=== PATIENT | female | born 1950 | race African-American/Black ===

== ENCOUNTER 2016-09-22 15:05 | Inpatient (IN) | payer MEDICARE, OTHER ==
[~2016-09-22] VITALS: Ht 172.7 cm; Wt 83.1 kg
--- NOTE | ~2016-09-22 | CO ---
Unit #: [id number] #: [id number] Patient: ATA THORNTON [id number] [facility]. [place], [place] [address] [id number] MR#: [id number] NAME: ATA THORNTON ROOM: 567 Age: 66 Sex: F Admission Date: 09/22/2016 : 1950 Attending Physician: Dwayne Hale M.D. Primary Care Physician: Johana Ramos M.D. Requesting Physician: Dwayne Hale M.D. Consultation Date: 09/23/2016 CONSULTATION REPORT REASON FOR CONSULTATION End stage renal disease. Thank you very much for the consultation. HPI Patient is a 66-year-old, -Honduran female who has a history of end stage renal disease. She receives dialysis every Monday, , and Monday at the [facility] on [facility]. She had all but 20 minutes of her dialysis treatment yesterday when she developed shortness of breath and was sent to the emergency room. Her symptoms improved with steroids and breathing treatments. While in the emergency room, she was noted to still have her dialysis needles in place. Upon removal of the dialysis needles, her fistula continued to bleed. The bleeding persisted despite pressure, dressing, and Surgicel. She was given DDAVP and vascular surgery was consulted to evaluate the patient. She is complaining of some numbness and weakness in her left hand. She did recently have exposed graft in that arm, which was removed. She has also had infection in that arm, which was treated with prolonged course of antibiotics recently. She otherwise denies any chest pain or shortness of breath this morning. No nausea, vomiting, or diarrhea. Her blood pressure had been elevated in the emergency room, but is doing better. No other complaints. PAST MEDICAL HISTORY Her past medical history is significant for end stage renal disease on Monday, , Monday hemodialysis; hypertension; history of GI bleed; hepatitis C; diabetes; and anemia of chronic kidney disease. MEDICATIONS Meds are as per the med rec. FAMILY HISTORY Noncontributory. SOCIAL HISTORY No tobacco or alcohol. She does live in a custodial. REVIEW OF SYSTEMS A 12-system review of systems is negative, except as per HPI. PHYSICAL EXAMINATION VITAL SIGNS: Her blood pressure is 156/61, heart rate 87, respirations 18, and current temperature 97.7. Unit #: [id number] #: [id number] Patient: ATA THORNTON GENERAL: Generally, she is a pleasant, -Honduran female in no acute distress. HEENT: Head is normocephalic and atraumatic. ENT: Pupils equally round and reactive to light. Oropharynx is clear. NECK: Supple. No JVD. LUNGS: Clear to auscultation bilaterally with no wheezes, rhonchi, or crackles. HEART: Regular rate and rhythm. No murmurs, gallops, or rubs. ABDOMEN: Soft, nontender, and nondistended with positive bowel sounds. EXTREMITIES: She has a pressure bandage over the left upper extremity AV fistula. There is a good bruit. NEURO: Cranial nerves, II-XII, are intact to testing. Gait was not assessed. DIAGNOSTIC STUDIES LABS: Sodium 143, potassium 4.2, chloride 96, bicarb 27, BUN 30, creatinine 4.5, glucose 243, calcium 8.2. White count 3.7, hemoglobin 8.5, and platelets 173. IMPRESSION 1. End stage renal disease on Monday, , Monday hemodialysis. 2. Shortness of breath likely secondary to chronic obstructive pulmonary disease. This is improved. 3. Prolonged bleeding from AV fistula. 4. Anemia of chronic kidney disease. 5. Hypertension. PLAN We will continue with Monday, , Monday hemodialysis while in the hospital. Awaiting vascular evaluation of her left arm access. Will check iron stores and continue Epo. with dialysis. Will titrate patient's clonidine and add p.r.n. hydralazine. Will have further recommendations as her hospital course progresses. Depending on vascular opinion, would be okay to discharge any time from a renal standpoint. Thank you very much for this consultation. Dictated by... Rohit Palma M.D. TEJ/carmen TD: 09/24/2016 08:22 JOB #: [id number] CONSULTATION REPORT Page 1 of 1 X Rohit Palma MD X CONSULTATION REPORT
--- NOTE | ~2016-09-22 | CO ---
Unit #: [id number] #: [id number] Patient: ATA THORNTON [id number] [address] [place], [place] [address] [id number] MR#: [id number] NAME: ATA THORNTON ROOM: 567 Age: 66 Sex: F Admission Date: 09/22/2016 : 1950 Attending Physician: Dwayne Hale M.D. Primary Care Physician: Johana Ramos M.D. CONSULTATION REPORT HISTORY OF PRESENT ILLNESS This is a 66-year-old -Maldivian female who is known to Dr. Luz and has a history of coronary artery disease where she underwent angioplasty and stent placement to the LAD in the past. She was admitted to this facility in January 2016 where she underwent cardiac catheterization where the previously placed stent to the LAD was patent. She had nonobstructive disease to the distal LAD, circumflex and right coronary artery. She was originally admitted to this facility from hemodialysis because of shortness of breath. She had bleeding from her AV fistula site requiring sutures. She has been seen by Vascular and no intervention is required at this time. Today, the patient developed right anterior chest pain with numbness to her left hand after moving in bed. The pain onset was sudden. It is worse with deep inspiration and palpation to her chest wall. She reports shortness of breath. EKG was obtained which was normal. Troponin also done, which was normal. The patient resides in a correction and is mostly bed bound and occasionally sits in a wheelchair. She is known to have risk factors for ischemic heart disease includes hypertension, hyperlipidemia and diabetes. Her shortness of breath was secondary to COPD exacerbation, which she has been treated accordingly. PAST MEDICAL HISTORY 1. A 2-D echocardiogram, 01/20/2016, shows an ejection fraction of 50 to 55% or grade 2 diastolic dysfunction. There was mild tricuspid regurgitation. 2. Angioplasty and stent placement to the LAD. No details available. 3. Cardiac catheterization, 01/22/2016, per Dr. Deng, shows left main normal. Left anterior descending artery has a long stent mid to distal with 20% instent stenosis. (1) LAD had 60 to 70% stenosis. Mid circumflex artery 50%. Right coronary artery proximal 50 to 60%. Ejection fraction of 60%. 4. Hypertension. 5. Hyperlipidemia. 6. Diabetes mellitus type 2. 7. CVA/TIA. 8. Hepatitis C. 9. End-stage renal disease on hemodialysis. 10. GI bleed, 01/2016, status post EGD which was normal. 11. custodial resident. 12. Nonsmoker. 13. Immobility syndrome. PAST SURGICAL HISTORY 1. AV shunt placement. Unit #: [id number] #: [id number] Patient: ATA THORNTON 2. Hysterectomy. 3. Left total knee replacement. 4. Cholecystectomy. 5. Cataract extraction. 6. Foot surgery. SOCIAL HISTORY The patient resides at a correction. She is a lifelong nonsmoker. She has no report of illicit drug or alcohol use. FAMILY HISTORY Noncontributory. ALLERGIES Sulfa, codeine, oxycodone, furosemide, Ibuprofen and latex. HOME MEDICATIONS 1. Loratadine 10 mg daily. 2. BuSpar 7.5 mg t.i.d. 3. Cardura 2 mg q.h.s. 4. Clonidine 0.2 mg t.i.d. 5. Docusate sodium 100 mg b.i.d. 6. Trazodone 50 mg q.h.s. 7. Neurontin 100 mg t.i.d. 8. Humulin R per sliding scale. 9. Lexapro 10 mg daily. 10. Lortab 5/325 mg one tablet q.6 hours p.r.n. 11. Plavix 75 mg daily. 12. Protonix 40 mg daily. 13. Multivitamin one tablet daily. 14. Symbicort 160/4.5 mcg two puffs b.i.d. 15. Metoprolol succinate 50 mg daily. 16. Calcium carbonate 1,000 mg daily. REVIEW OF SYSTEMS A 10-point review of systems negative except details stated in HPI. PHYSICAL EXAMINATION GENERAL APPEARANCE: This is an obese, 66-year-old -Maldivian female who is in no acute distress. VITAL SIGNS: Blood pressure 138/84. Heart rate 69. Temperature 98.7. NEUROLOGIC: She is awake, alert, oriented. There are no focal weaknesses. NECK: Trachea is midline. No thyromegaly or lymphadenopathy. No jugular venous distention. HEART: S1, S2 heart sounds are normal. No murmurs, rubs or clicks. Regular rate and rhythm. LUNGS: Clear both lung bases. ABDOMEN: Soft, nontender but bowel sounds are present. No organomegaly. EXTREMITIES: Without leg edema. SKIN: Warm and dry. DIAGNOSTIC STUDIES LABORATORY: Hemoglobin 8.5, hematocrit 25.4, platelet count 173, white count 3.7. Sodium 133, potassium 4.2, BUN 30, creatinine 4.5, glucose 243. Troponin 0.04. CARDIOVASCULAR: EKG shows normal sinus rhythm, rate of 61 beats per minute. QTC prolongation 495 msec. Unit #: [id number] #: [id number] Patient: ATA THORNTON IMPRESSION 1. AV fistula bleeds resolved. 2. Right-sided chest pain musculoskeletal in origin. 3. History of PCI and stent to the LAD. Patent per cardiac catheterization 01/2016. 4. Preserved left ventricular systolic function with ejection fraction of 50 to 55%. 5. Hypertension. 6. Hyperlipidemia. 7. Diabetes mellitus type 2. 8. COPD. 9. Anxiety. 10. End-stage renal disease on hemodialysis. PLAN 1. Cardiology was asked to see the patient because of chest pain. The patient has right-sided chest pain that is reproducible with palpation. She has chest pain also with deep inspiration. Troponin initially negative with no acute changes on EKG. The chest pain appears to be noncardiac in origin. 2. We will repeat troponin and EKG. If normal, anticipate no further cardiac workup. 3. Follow up with Dr. Luz at discharge. Thank you for allowing us to assist in this patient's care. Dictated by... Abhishek MichaelP.R.N. for Cr [place]/isela TD: 09/26/2016 07:21 JOB #: [id number] CC: Ethan Luz M.D. CONSULTATION REPORT Page 1 of 1 X Fortunato Jacobo APRN CONSULTATION REPORT
--- NOTE | ~2016-09-22 | DS ---
Unit #: [id number] #: [id number] Patient: ATA THORNTON [id number] [facility] [address] [facility]. [place], [place] [address] [id number] I MR#: [id number] NAME: ATA THORNTON ROOM: 567 Age: 66 Sex: F Admission Date: 09/22/2016 : 1950 Discharge Date: 09/24/2016 Attending Physician: Dwayne Hale M.D. Primary Care Physician: Johana Ramos M.D. DISCHARGE SUMMARY REASON FOR ADMISSION Left arm dialysis fistula bleeding. HISTORY OF PRESENT ILLNESS/HOSPITAL COURSE Patient is a very pleasant, 66-year-old female, long-term resident of [facility], with prior history of end stage renal disease who presented secondary to fistula malfunction. Please refer to H and P for complete details. Consultation was placed to vascular services. Dr. Ackerman and vivian saw and evaluated patient. Appropriate pressure dressings were placed. There were no acute bleeding issues which happened and/or occurred through hospital course. Recommendation was made for patient to follow up with Dr. Leroy as an outpatient. Yesterday, on day one of admission, patient did complain of some right-sided chest pain and/or discomfort secondary to a prior history of coronary artery disease as well as hypertension. Consultation was placed to [facility] Cardiology. Patient did undergo routine cardiac enzymes, which were cycled and negative. It was felt on exam, however, that patient's chest pain was reproducible. At this point in time, they have recommended no further workup. They did recommend the patient followup with [facility] Cardiology, Dr. Cardoso and Vivian, for further evaluation if any further recurrent episodes. At this point in time, patient is clinically stable for transition back to long-term nursing care. FINAL DISCHARGE DIAGNOSES 1. Fistula malfunction, now resolved. 2. End stage renal disease. 3. Chest pain, likely costochondritis/(1) spasm. Acute coronary syndrome ruled out. 4. Anemia, likely of chronic disease. 5. Coronary artery disease history. 6. Insulin dependent diabetes. 7. Peripheral neuropathy. 8. Hypertension. 9. Hyperlipidemia. 10. Osteoarthritis. 11. Prior history of transient ischemic attack. 12. Prior history of cerebrovascular accident. 13. Gastroesophageal reflux disease. 14. Hepatitis C. 15. Chronic immobility syndrome. Unit #: [id number] #: [id number] Patient: ATA THORNTON 16. Morbid obesity. FINAL DISCHARGE MEDICATIONS 1. Symbicort 160/4.5 two puffs b.i.d. 2. Neurontin 100 mg p.o. t.i.d. 3. Lexapro 10 mg p.o. every day. 4. Trazodone 50 mg p.o. q.h.s. 5. Claritin 10 mg p.o. every day. 6. BuSpar 7.5 mg p.o. t.i.d. 7. Toprol XL 50 mg p.o. every day. 8. Colace 100 mg p.o. b.i.d. 9. MiraLAX as directed. 10. Procrit 10,000 units injection every Monday. 11. Catapres 0.3 mg p.o. t.i.d. Note new/increased dosage. 12. Cardura 2 mg p.o. q.h.s. 13. Humulin R as per [facility]. 14. Multivitamin daily. 15. [place] 5/325 one tab p.o. q.6 p.r.n. 16. Plavix 75 mg p.o. every day. 17. Protonix 40 mg p.o. every day. 18. Tums 1000 mg p.o. every day. 19. Nephrocaps p.o. every day. DISCHARGE CONDITION Stable. DISCHARGE DISPOSITION snf. Dictated by... Cr Khan/carmen TD: 09/24/2016 12:49 JOB #: [id number] DISCHARGE SUMMARY Page 1 of 1 X Dwayne Hale MD X DISCHARGE SUMMARY
--- NOTE | ~2016-09-22 | CO ---
Unit #: [id number] #: [id number] Patient: ATA EDWARDS [id number] [address] [place], [place] [address] [id number] MR#: [id number] NAME: ATA EDWARDS ROOM: 56 Age: 66 Sex: F Admission Date: 09/22/2016 : 1950 Attending Physician: Dwayne Hale M.D. Primary Care Physician: Johana Ramos M.D. Consultation Date: 09/23/2016 CONSULTATION REPORT VASCULAR SURGERY CONSULTATION REASON FOR CONSULTATION Prolonged dialysis access, bleeding in left arm. HISTORY OF PRESENT ILLNESS This is a 66-year-old female, with a history of end-stage renal disease, who has been on hemodialysis, a reported [address] Dayday Leroy for vascular access and has recently underwent left arm dialysis access revision. Ms. Edwards reports that the revision was on Monday of this week and that she was discharged back to her longterm on Monday. She reports that she was given permission by Dr. Leroy to use the left arm dialysis access as her primary source for hemodialysis. In fact, she has a healing puncture site in her right neck where I suspect a previously placed tunneled dialysis catheter has been removed. She goes to hemodialysis on Monday, , and Monday. While at dialysis, yesterday, she became short of air and was sent to the emergency room. When her left arm hemodialysis access was de-accessed and the needles removed she experienced prolonged bleeding. Pressure was held and Surgicel was attempted and the bleeding persisted. The emergency room physician placed several sutures over the puncture site and the access site continued to bleed so vascular surgery was asked to see her. Upon assessment this morning, I find the arm wrapped lightly in an Paramjit bandage. Upon removing the bandage and assessing the site the bleeding has completely stopped. PAST MEDICAL HISTORY Significant for: 1. End-stage renal disease. 2. Coronary artery disease. 3. Hypertension. 4. CVA. 5. Hepatitis C. 6. High cholesterol. 7. Chronic immobility. MEDICATIONS 1. BuSpar 7.5 mg three times a day 2. Cardura 2 mg at bedtime 3. Catapres 0.2 mg three times daily 4. Trazodone 50 mg one time at bedtime 5. Gabapentin 100 mg three times daily 6. Dulera two puffs twice daily 7. MiraLAX 17 gram powder daily Unit #: [id number] #: [id number] Patient: ATA EDWARDS 8. DuoNeb nebulizer every four hours as needed 9. Hydrocodone/acetaminophen 5/325 one tablet every six hours as needed FAMILY HISTORY Negative family history. SOCIAL HISTORY The patient resides in a longterm. She is a DNR. She denies smoking, alcohol, or drug use. REVIEW OF SYSTEMS None noted other than in history of present illness. A complete review of systems was performed and negative except for left arm prolonged bleeding, and shortness of breath which has since resolved. PHYSICAL EXAMINATION VITAL SIGNS: Temperature 97.7, heart rate 87, respirations 18, blood pressure 156/61. GENERAL APPEARANCE: This is a well-developed, well-nourished female in no acute distress. Fair historian. Answers questions appropriately. HEENT: Normocephalic. Pupils are equal, round, and reactive to light. NECK: Supple, no carotid bruits on auscultation. CARDIAC: Regular rate and rhythm, (1) noted. LUNGS: Clear to diminished, nonlabored. The patient is on room air. ABDOMEN: Positive bowel sounds, soft, nontender, no distention. MUSCULOSKELETAL: Moves all extremities with residual weakness and decreased dexterity of the fingers of the right hand and fourth and fifth fingers of the left hand. Generalized weakness of her bilateral lower extremities. VASCULAR: Radial pulses are palpable; however, the left radial pulse is weak. The left hand is warm and dry and has no vascular compromise. INTEGUMENTARY: Overall, skin is warm and dry. I see no obvious sores, lesions, or defects. The left upper arm has a recent incision with sutures remaining in place. There is some slight ecchymosis visible. The incision in the left upper arm is in a horseshoe shape and edges are well approximated. No drainage from the incision. The previously accessed site has several sutures that are intact. There is no oozing of blood or serous fluid from beneath the sutures. The valve is accessed and has a prominent thrill as well as bruit. NEUROLOGICAL: Cranial nerves II through XII grossly intact. PSYCHIATRIC: The patient is oriented to person, place, and time. DIAGNOSTIC STUDIES LABORATORY RESULTS: Sodium 133, potassium 4.2, chloride 96, CO2 27, BUN 30, creatinine 4.5, glucose 243, hemoglobin 8.5, hematocrit 25.4, WBCs 3.7, platelets 173. ASSESSMENT/PLAN Left arm dialysis access with prolonged bleeding. PLAN Bleeding has resolved, status post sutures and pressure. It is now okay to use the dialysis access for her next treatment which will be tomorrow. She should follow up with Dr. Leroy for postoperative care. She may require a fistulogram if she has elevated central vein pressures potentially causing this prolonged bleeding. Her progress note was updated to reflect an order to use a smaller needle whenever she undergoes hemodialysis at her next time. Unit #: [id number] #: [id number] Patient: ATA EDWARDS Thank you for allowing us to see Ms. Edwards in consultation. If there are any questions about her care please call our office at [phone]. Dictated by... ARIELA Patel TD: 09/24/2016 09:51 JOB #: [id number] CONSULTATION REPORT Page 1 of 1 X X CONSULTATION REPORT
--- NOTE | ~2016-09-22 | EKG ---
PATIENT: ATA THORNTON UNIT #: [id number] Ventricular Rate: 62 BPM Atrial Rate: 62 BPM P-R Interval: 204 ms QRS Duration: 86 ms Q-T Interval: 498 ms QTC Calculation(Bezet): 505 ms P [place]: 68 degrees Calculated R [place]: 72 degrees Calculated T [place]: 113 degrees Diagnosis Line: Normal sinus rhythm Diagnosis Line: Nonspecific ST abnormality Diagnosis Line: Borderline ECG Diagnosis Line: When compared with ECG of 22-SEP-2016 16:24, Diagnosis Line: (unconfirmed) Diagnosis Line: No significant change was found Diagnosis Line: Confirmed by MARQUITA TINAJERO MD ([id number]) on 09/24/2016 Diagnosis Line: 8:23:05 AM INTERPRETING MD: LIOR ALVAREZ
--- NOTE | ~2016-09-22 | EKG ---
PATIENT: ATA THORNTON UNIT #: [id number] Ventricular Rate: 61 BPM Atrial Rate: 61 BPM P-R Interval: 200 ms QRS Duration: 92 ms Q-T Interval: 492 ms QTC Calculation(Bezet): 495 ms P [place]: 65 degrees Calculated R [place]: 73 degrees Calculated T [place]: 52 degrees Diagnosis Line: Normal sinus rhythm Diagnosis Line: Prolonged QT Diagnosis Line: Borderline ECG Diagnosis Line: When compared with ECG of 22-SEP-2016 16:25, Diagnosis Line: (unconfirmed) Diagnosis Line: No significant change was found Diagnosis Line: Confirmed by MARQUITA TINAJERO MD ([id number]) on 09/24/2016 Diagnosis Line: 8:41:28 AM INTERPRETING MD: LIOR ALVAREZ
--- NOTE | ~2016-09-22 | DS ---
Unit #: [id number] #: [id number] Patient: ATA THORNTON [id number] [address] [address] [id number] I MR#: [id number] NAME: ATA THORNTON ROOM: 56 Age: 66 Sex: F Admission Date: 09/22/2016 : 1950 Discharge Date: Attending Physician: Dwayne Hale M.D. Primary Care Physician: Johana Ramos M.D. DISCHARGE SUMMARY ADDENDUM Please see discharge summary dictated on September 24, 2016, for hospital details. The patient underwent hemodialysis after which she began developing recurrent bleeding from her fistula site on the left upper extremity. Therefore, vascular services were subsequently re-consulted. Appropriate pressure pressure/compression dressings were placed. Bleeding did resolve. From a vascular standpoint, a recommendation was made for patient to follow up with Dr. Leroy as an outpatient as soon as possible as he was the initial physician that placed the fistula and, therefore, no further intervention was recommended. At the present time, the patient has no active bleeding. She will be, today, [facility]. She should follow up with Dr. Leroy either tomorrow or on Monday a.m., either on September 26 or September 27 early a.m. for evaluation as an outpatient. Medications as well as final discharge diagnoses remain unchanged. Dictated by... Cr Khan/zain TD: 09/25/2016 12:55 JOB #: [id number] DISCHARGE SUMMARY Page 1 of 1 X Dwayne Hale MD X DISCHARGE SUMMARY
--- NOTE | ~2016-09-22 | EKG ---
PATIENT: ATA THORNTON UNIT #: [id number] Ventricular Rate: 59 BPM Atrial Rate: 59 BPM P-R Interval: 198 ms QRS Duration: 90 ms Q-T Interval: 498 ms QTC Calculation(Bezet): 493 ms P [place]: 68 degrees Calculated R [place]: 70 degrees Calculated T [place]: 35 degrees Diagnosis Line: Sinus bradycardia Premature ventricular complexes Diagnosis Line: Nonspecific T wave abnormality Diagnosis Line: Prolonged QT Diagnosis Line: Abnormal ECG Diagnosis Line: When compared with ECG of 23-SEP-2016 16:35, Diagnosis Line: Premature ventricular complexes is now Present Diagnosis Line: Confirmed by MARQUITA TINAJERO MD ([id number]) on 09/27/2016 Diagnosis Line: 6:58:24 AM INTERPRETING MD: LIOR ALVAREZ
--- NOTE | ~2016-09-22 | HP ---
Unit #: [id number] #: [id number] Patient: ATA THORNTON [id number] [address] [address] [id number] MR#: [id number] NAME: ATA THORNTON ROOM: 567 Age: 66 Sex: F Admission Date: 09/22/2016 : 1950 Attending Physician: Hilda Ledesma M.D. Primary Care Physician: Johana Ramos M.D. HISTORY AND PHYSICAL CHIEF COMPLAINT Bleeding from left arm dialysis fistula site, dyspnea, accelerated hypertension. HISTORY This pleasant 66-year-old female, resident of [facility], with end stage renal failure, IDDM, hypertension, is admitted for bleeding at dialysis fistula site. During dialysis today, the patient developed shortness of breath and was sent to this emergency department this afternoon. She was noted at that time to have some mild wheezing. She was treated with steroids and bronchodilators with improvement of her symptoms. When she was going to be discharged, it was noted that her dialysis fistula was still accessed with two needles in her arm. Therefore, dialysis nurse was called in to remove the needles. During attempt to remove the patient's needles, the patient developed bleeding which did not respond to compression dressing, or Surgicel. Therefore, the ER physician saw the patient and placed multiple sutures but he fistula was still bleeding. Therefore, a compression dressing was placed again and a call was made to Dr. Ackerman who will be seeing the patient in the morning. At this time, the bleeding appears to have stopped. Also of note, the patient's blood pressure is quite elevated, currently is 188/78. I have asked that her usual dose of clonidine be administered. PAST MEDICAL HISTORY 1. Admission 01/2016 and 02/2016 for GI bleeding of uncertain etiology. The patient underwent an EGD which was negative, colonoscopy which showed gu diverticular disease but no active bleeding. Did require transfusions during both hospitalizations. 2. CAD, status post PCI and stent. 3. End stage renal failure, on dialysis Monday, , Monday, followed by Dr. Edmond. 4. IDDM with peripheral neuropathy. 5. Essential hypertension. 6. Hyperlipidemia. 7. DJD. 8. Previous TIA/CVA. 9. Chronic anemia. 10. GERD. 11. Hepatitis C. 12. Hysterectomy. 13. Left total knee replacement. 14. Cholecystectomy. Unit #: [id number] #: [id number] Patient: ATA THORNTON 15. Foot surgery. 16. Cataract extraction. 17. . 18. Dialysis fistula or shunt, left upper arm. 19. Cardiac catheterization 12/2015, ejection fraction of 60% with patent stents in the left main, LAD calcified 30%, apical LAD 60% to 70%, left circumflex, mid calcification 50%. ALLERGIES Ibuprofen, Lasix, latex, oxycodone, codeine and sulfa. HOME MEDICATIONS 1. Claritin 10 mg daily. 2. BuSpar 7.5 mg t.i.d. 3. Cardura 2 mg q. h.s. 4. Catapres 0.2 mg t.i.d. 5. Colace 100 mg b.i.d. 6. Trazodone 50 mg q. h.s. 7. Neurontin 100 mg t.i.d. 8. Low dose sliding scale Humulin R. 9. Lexapro 10 mg daily. 10. Lortab 5/325 q.6 hours p.r.n. pain. 11. Plavix 75 mg daily. 12. Protonix 40 mg daily. 13. Randa-Keila vitamin daily. 14. Symbicort 160/4.5, two puffs b.i.d. 15. Toprol XL 50 mg daily. 16. Tums 1000 mg daily. FAMILY HISTORY Negative for CAD. SOCIAL HISTORY The patient resides at [facility]. Code status appears to be a DNR per their records. She is a lifelong nonsmoker, does not drink alcohol. REVIEW OF SYSTEMS Notable for feeling hungry and tired, GI bleed, CAD, diabetes, hypertension, hyperlipidemia, DJD, previous stroke, anemia and above mentioned surgeries along with hepatitis C. All other systems were reviewed and are otherwise negative. PHYSICAL EXAMINATION GENERAL APPEARANCE: Pleasant 66-year-old female, currently in no acute distress. She looks like she could have a little bit of tardive dyskinesia. VITAL SIGNS: Temperature 98, pulse 65, respirations 20, initial blood pressure 151/112 but current manual blood pressure is 188/78. HEENT: Eyes PERRLA. Extraocular muscles are intact. Pharynx is benign. NECK: Supple without adenopathy or thyromegaly. CHEST: Clear. CARDIAC: Normal S1 and S2 without definite murmur. ABDOMEN: Bowel sounds are present. No hepatosplenomegaly, tenderness or masses. EXTREMITIES: No pedal edema. Pedal pulses are diminished. There is a compression dressing over the left upper arm with good bruit back in here with a good left radial pulse. NEUROLOGIC EXAM: The patient is awake, alert. She is fairly oriented. Unit #: [id number] #: [id number] Patient: ATA THORNTON Her cranial nerves are intact. She may have a little bit of tardive dyskinesia, I am unsure on exam. DIAGNOSTIC STUDIES LABORATORY: Admission labs - hematocrit is 26.7 which is stable. White blood count 3.7, normal platelet count. SMA-12 - glucose 184, creatinine 3.2, sodium 134, chloride 96, calcium is 8, albumin is 3.1. AST 53, alkaline phos. 165. ABG - pH 7.43, pCO2 43, pO2 71, O2 saturation is 92.6%. Cardiac markers are negative. IMAGING: Chest x-ray, from the long dictation, I believe is stable from before. Mild vascular prominence. Some patchy and liner densities of the left lung base, less pronounced than on prior exam. Please see transcribed dictation. CARDIOVASCULAR: EKG - sinus rhythm, rate 62, nonspecific ST wave flattening. ASSESSMENT 1. Dyspnea, better after steroids and bronchodilators. 2. Bleeding from left arm dialysis fistula or shunt, now improved after multiple sutures were placed and compression dressing is in place. 3. Accelerated hypertension. 4. CAD with normal LV function. 5. AODM with peripheral neuropathy. 6. Chronic anemia secondary to end stage renal failure. 7. End stage renal failure on hemodialysis Monday, , Saturdays. 8. Prior CVA. 9. GERD. 10. Hepatitis C. PLANS 1. DDAVP. Hold Plavix. Recheck CBC now and in the morning. Check coags. 2. Dr. Ackerman was consulted. Will keep the compression dressing on until seen in the morning. 3. Blood pressure control. I will give patient her usual clonidine now and monitor her on a telemetry bed. 4. 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 5. SCDs for DVT prophylaxis. 6. Patient is DNR per her long-term papers. 7. P.r.n. bronchodilators. Dictated by Cr Juarez/zain TD: 09/23/2016 05:03 JOB #: [id number] Unit #: [id number] #: [id number] Patient: ATA THORNTON HISTORY AND PHYSICAL Page 1 of 1 X Hilda Ledesma MD X HISTORY AND PHYSICAL
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
[~2016-09-22 15:05] MED LIST: ACETAMINOPHEN PO; ADVAIR 100-501 EAC1; ADVAIR 500-501 EACH IH; ALB/IPRATROPIUM/1 E1 INH; ALB/IPRATROPIUM/1 E2 INH; ALBUTEROL MININEB NEB; ALLERGY REL5 MG/5 ML PO; ALLERGY RELIEF10 M1 PO; BACITRACIN500/UDPK1 TP; BAYER CHEWABLE81 MG PO; BENADRYL ANTI-I85 GM TOP; BESIVANCE5 ML OD; BIOTENE1000 ML MM; BIOTENE1000 ML PO; BUSPAR15 M1 PO; BUSPIRONE HCL7.5 MG PO; CALCIUM ANTACI500 MG PO; CAMPHO-PHENIQU6.5 GM TOP; CARDURA2 MG PO; CLARITIN PO; CLARITIN10 M2 PO; CLARITIN10 M3 PO; CLARITIN5 MG PO; CLONIDINE PO; CLOPIDOGREL75 MG PO; COLACE PO; COMBIVENT MININEB INH; COMBIVENT U/D3 M1 INH; COMBIVENT U/D3 M4 INH; COMBIVENT U/D3 ML INH; COREG6.25 MG PO; DESYREL150 M1 PO; DESYREL50 MG PO; DOC-Q-LACE100 MG PO; DOCUSATE SODIU100 MG PO; DRISDOL8000 U/ML PO; FLOMAX0.4 M1 PO; FLORASTOR250 M1 PO; GUAIFENESIN LA600 M1 PO; HUMIBID-LA600 MG PO; HUMULIN R100 U/ML; IBUPROFEN800 MG PO; IMODIUM2 MG PO; LEXAPRO PO; LEXAPRO20 MG PO; LIPITOR80 MG PO; LOPERAMIDE HCL2 M1 PO; MAGBID ER84 MG; MAGNESIUM OXID200 MG PO; MEDROL DOSEPAK4 MG PO; MIRALAX17 GM PO; MIRALAX255 GM PO; NEPHROCAPS CAPSU1 MG PO; NEPHROCAPS1 CAP PO; NEURONTIN100 MG PO; NIFEDIPINE ER90 MG PO; NORCO 10-325 TA1 TAB PO; NORCO 10/3251 TAB PO; NORCO1 TAB 10/3 PO; NORVASC PO; NORVASC10 MG PO; NOVOLIN R100 UNITS/; NOVOLIN R100 UNITS/ SUBQ; NOVOLOG FL100 UNIT/1; NOVOLOG100 U/M2 SUBQ; OMNIPRED10 ML OU; ONDANSETRON HCL4 M1 PO; OS-CAL 500 + D500 MG PO; PHOSLO667 M1 PO; PLAVIX PO; PROTONIX PO; PYRIDIUM100 MG PO; REGLAN5 MG PO; RENAL-VITE TAB0.8 MG PO; SENSIPAR30 MG PO; TOPROL XL 50 MG50 M1 PO; TOPROL XL 50 MG50 MG PO; TOPROL XL50 MG PO; TRAMADOL HCL50 M1 PO; TRAMADOL HCL50 M2 PO; TRAZODONE PO; TYLENOL325 M1 PO; VIGAMOX3 M1 OU; VISINE TEARS DR15 ML OU; VISINE15 ML OU; VITAMIN B COMP1 EACH PO; VOLTAREN 0.1%2.5 M1 OU; ZOFRAN ODT4 MG PO; [UNRECOGNIZED DRUG - OTHER] PO
[2016-09-22 16:28] LABS: POC - CKMB <1.0 ng/mL (0.0-7.9); POC - TROPONIN <0.05 ng/mL (<=0.05)
[2016-09-22 16:39] LABS: ARTERIAL BLD GAS O2 SATURATION 92.6 % (90.0-100.0); ARTERIAL BLOOD GAS HCO3 29.5 mmol/L; ARTERIAL BLOOD GAS MET HB 0.9 %sat (0.0-2.0); ARTERIAL BLOOD GAS PCO2 43.7 mmHg (35.0-45.0); ARTERIAL BLOOD GAS pH 7.437 (7.350-7.450)
[2016-09-22 16:40] LABS: ARTERIAL BLOOD GAS ALLEN TEST N; ARTERIAL BLOOD GAS ART SITE RIGHT RADIAL; ARTERIAL DRAW? YES
[2016-09-22 16:43] LABS: BASOPHIL% 0.9 % (0-2.5); EOSINOPHIL# 0.2 X10e3 (0-0.7); EOSINOPHIL% 4.1 % (0.0-7.0); HEMATOCRIT 26.7 % (35.0-45.0); HEMOGLOBIN 8.9 gm/dL (12.0-16.0); LYMPHOCYTE# 0.8 X10e3 (1.0-3.5); LYMPHOCYTE% 21.8 % (17.0-45.0); MEAN CELL VOLUME 98.5 FL (83-96); MEAN CORPUSCULAR HEMOGLOBIN 32.8 PG (28-34); MEAN CORPUSCULAR HGB CONC 33.3 g/dL (30-36); MEAN PLATELET VOLUME 9.1 FL (6.5-11.5); MONOCYTE# 0.1 X10e3 (0-1.0); MONOCYTE% 3.6 % (3.0-12.0); NEUTROPHIL# 2.6 X10e3 (1.5-7.1); NEUTROPHIL% 69.6 % (40-75); PLATELET COUNT 192 X10e3 (140-420); RED BLOOD COUNT 2.71 X10e (3.90-5.30); RED CELL DISTRIBUTION WIDTH 15.6 % (11.0-15.5); WHITE BLOOD COUNT 3.7 X10e3 (4.0-10.5)
[2016-09-22] MEDS ORDERED: CLARITIN10 M3 PO (16:49)
[2016-09-22] MEDS ORDERED: CARDURA1 MG PO (16:49)
[2016-09-22] MEDS ORDERED: BUSPIRONE HCL7.5 MG PO (16:49)
[2016-09-22 16:50] LABS: DIFF IND NO
[2016-09-22] MEDS ORDERED: HUMULIN R100 UNIT/1 (16:50)
[2016-09-22] MEDS ORDERED: DOC-Q-LACE100 MG PO (16:50)
[2016-09-22] MEDS ORDERED: DESYREL50 MG PO (16:50)
[2016-09-22] MEDS ORDERED: NEURONTIN100 MG PO (16:50)
[2016-09-22] MEDS ORDERED: LEXAPRO PO (16:50)
[2016-09-22] MEDS ORDERED: CLONIDINE PO (16:50)
[2016-09-22] MEDS ORDERED: CLOPIDOGREL75 MG PO (16:51)
[2016-09-22] MEDS ORDERED: MULTIVITAMINS1 EAC3 PO (16:51)
[2016-09-22] MEDS ORDERED: SYMBICORT INH (16:51)
[2016-09-22] MEDS ORDERED: LORTAB 5-325 M1 EACH PO (16:51)
[2016-09-22] MEDS ORDERED: PROTONIX PO (16:51)
[2016-09-22] MEDS ORDERED: TUMS500 MG PO (16:52)
[2016-09-22] MEDS ORDERED: TOPROL XL50 MG PO (16:52)
[2016-09-22 17:14] LABS: ALBUMIN SERUM 3.1 g/dL (3.5-5.0); BILIRUBIN, DIRECT 0.1 mg/dL (0.0-0.2); BILIRUBIN,INDIRECT 0.4 mg/dL (0.0-0.9); BILIRUBIN,TOTAL 0.5 mg/dL (0.2-2.0); BUN/CREATININE RATIO 5.62; CREATININE SERUM 3.2 mg/dL (0.6-1.4); GLOM FILT RATE Estimated 16.4 mL/min (>60); POTASSIUM 3.7 mmol/L (3.5-5.1); PROTEIN TOTAL SERUM 7.8 g/dL (6.0-8.3)
[2016-09-23 02:14] LABS: HEMATOCRIT 28.1 % (35.0-45.0); HEMOGLOBIN 9.2 gm/dL (12.0-16.0); MEAN CELL VOLUME 97.7 FL (83-96); MEAN CORPUSCULAR HGB CONC 32.8 g/dL (30-36); MEAN PLATELET VOLUME 9.3 FL (6.5-11.5); RED BLOOD COUNT 2.87 X10e (3.90-5.30); RED CELL DISTRIBUTION WIDTH 15.7 % (11.0-15.5); WHITE BLOOD COUNT 3.9 X10e3 (4.0-10.5)
[2016-09-23 07:23] LABS: HEMATOCRIT 25.4 % (35.0-45.0); HEMOGLOBIN 8.5 gm/dL (12.0-16.0); MEAN CELL VOLUME 97.6 FL (83-96); MEAN CORPUSCULAR HEMOGLOBIN 32.8 PG (28-34); MEAN CORPUSCULAR HGB CONC 33.6 g/dL (30-36); MEAN PLATELET VOLUME 8.8 FL (6.5-11.5); RED BLOOD COUNT 2.61 X10e (3.90-5.30); RED CELL DISTRIBUTION WIDTH 15.6 % (11.0-15.5); WHITE BLOOD COUNT 3.7 X10e3 (4.0-10.5)
[2016-09-23 08:11] LABS: BUN/CREATININE RATIO 6.66; CALCIUM SERUM 8.2 mg/dL (8.4-10.2); CREATININE SERUM 4.5 mg/dL (0.6-1.4); GLOM FILT RATE Estimated 10.9 mL/min (>60); POTASSIUM 4.2 mmol/L (3.5-5.1)
[2016-09-23 16:51] LABS: CK TOTAL 21 IU/L (26-140)
[2016-09-24 06:53] LABS: HEMATOCRIT 23.4 % (35.0-45.0); HEMOGLOBIN 7.9 gm/dL (12.0-16.0); MEAN CELL VOLUME 98.9 FL (83-96); MEAN CORPUSCULAR HEMOGLOBIN 33.3 PG (28-34); MEAN CORPUSCULAR HGB CONC 33.6 g/dL (30-36); MEAN PLATELET VOLUME 8.4 FL (6.5-11.5); RED BLOOD COUNT 2.37 X10e (3.90-5.30); RED CELL DISTRIBUTION WIDTH 15.8 % (11.0-15.5); WHITE BLOOD COUNT 4.4 X10e3 (4.0-10.5)
[2016-09-24 07:38] LABS: BUN/CREATININE RATIO 7.01; CALCIUM SERUM 7.7 mg/dL (8.4-10.2); CREATININE SERUM 5.7 mg/dL (0.6-1.4); GLOM FILT RATE Estimated 8.2 mL/min (>60); POTASSIUM 4.1 mmol/L (3.5-5.1)
[2016-09-25 05:23] LABS: BASOPHIL% 0.8 % (0-2.5); EOSINOPHIL# 0.2 X10e3 (0-0.7); EOSINOPHIL% 4.9 % (0.0-7.0); HEMATOCRIT 25.4 % (35.0-45.0); HEMOGLOBIN 8.5 gm/dL (12.0-16.0); LYMPHOCYTE% 21.4 % (17.0-45.0); MEAN CELL VOLUME 99.1 FL (83-96); MEAN CORPUSCULAR HGB CONC 33.3 g/dL (30-36); MONOCYTE# 0.4 X10e3 (0-1.0); MONOCYTE% 9.3 % (3.0-12.0); NEUTROPHIL% 63.6 % (40-75); PLATELET COUNT 179 X10e3 (140-420); RED BLOOD COUNT 2.56 X10e (3.90-5.30); WHITE BLOOD COUNT 4.8 X10e3 (4.0-10.5)
[2016-09-25 05:36] LABS: DIFF IND NO
== END 2016-09-25 14:21 | DRG 314 ==
LOC: CED 15:05 → CEDOF 23:20 → C5C 09-23 00:25
PROVIDERS: Emergency Medicine; Family Medicine; Internal Medicine; Internal Medicine Nephrology
PROC: 5A1D60Z (ICD-10-PCS; principal; 2016-09-22)
DX: T82.838A Hemorrhage due to vascular prosthetic devices, implants and grafts, initial encounter (principal); N18.6 End stage renal disease; I12.0 Hypertensive chronic kidney disease with stage 5 chronic kidney disease or end stage renal disease; E11.42 Type 2 diabetes mellitus with diabetic polyneuropathy; I16.1 Hypertensive emergency; Y82.8 Other medical devices associated with adverse incidents; I25.10 Atherosclerotic heart disease of native coronary artery without angina pectoris; Z99.2 Dependence on renal dialysis; Z79.4 Long term (current) use of insulin; E78.5 Hyperlipidemia, unspecified; M19.90 Unspecified osteoarthritis, unspecified site; K21.9 Gastro-esophageal reflux disease without esophagitis; B19.20 Unspecified viral hepatitis C without hepatic coma; Z90.710 Acquired absence of both cervix and uterus; Z90.49 Acquired absence of other specified parts of digestive tract; Z96.652 Presence of left artificial knee joint; Z98.49 Cataract extraction status, unspecified eye; Z88.2 Allergy status to sulfonamides; Z88.8 Allergy status to other drugs, medicaments and biological substances; Z91.040 Latex allergy status; D63.1 Anemia in chronic kidney disease; Z86.73 Personal history of transient ischemic attack (TIA), and cerebral infarction without residual deficits; R07.9 Chest pain, unspecified; J44.9 Chronic obstructive pulmonary disease, unspecified; F41.9 Anxiety disorder, unspecified; M62.3 Immobility syndrome (paraplegic); Z66 Do not resuscitate
CPT/HCPCS: 36415; 36600; 71010; 80048; 80076; 82550; 82553; 82728; 82803; 82947; 83540; 83550; 84484; 85025; 85027; 86850; 86900; 86901; 93005; 94640; 94664; 94760; 96374; 99285; J0360; J0885; J1815; J2597; J2930